=== PATIENT | female | born 2000 | race Two or more races ===

== ENCOUNTER 2023-12-22 14:07 | Emergency (ER) | payer OTHER ==
[~2023-12-22] VITALS: Ht 167.6 cm; Wt 122.5 kg
[2023-12-22] MEDS ORDERED: 0.9 % SODIUM CHLORIDE 1,000 ML IV STA (18:19)
[2023-12-22] MEDS ORDERED: MEPERIDINE HCL/PF 25 MG/ML VIAL IM STA (18:20)
[2023-12-22] MEDS ORDERED: PROMETHAZINE HCL 25 MG/ML AMPUL IM STA (18:20)
[2023-12-22 19:27] LABS: HEMATOCRIT 36.3 % (36.0-45.00); HEMOGLOBIN 13.1 g/dL (12.0-15.00); MEAN CELL VOLUME 85.9 fL (80.00-100.00); MEAN CORPUSCULAR HEMOGLOBIN 30.9 pg (27.00-32.0); PLATELET COUNT 350 K/uL (150-450); RED BLOOD COUNT 4.23 M/uL (4.00-6.00); RED CELL DISTRIBUTION WIDTH 14.7 % (11.5-14.5)
[2023-12-22 19:42] LABS: INR 1.02; PARTIAL THROMBOPLASTIN TIME 29.8 SECONDS (22.0-34.0); PROTHROMBIN TIME 10.7 SECONDS (9.0-11.5)
[2023-12-22 20:08] LABS: ALBUMIN 3.9 gm/dL (3.4-5.0); BILIRUBIN TOTAL 0.99 mg/dL (0.3-1.2); CALCIUM 9.2 mg/dL (8.5-10.1); CREATININE SERUM 0.67 mg/dL (0.55-1.02); GFR 110.06; GLOBULINA 3.6 G/DL (2.4-3.5); POTASSIUM 3.74 mEq/L (3.5-5.1); TOTAL PROTEIN 7.5 gm/dL (6.4-8.2)
== END 2023-12-22 22:12 | disposition home or self-care (01) ==
LOC: ER 14:07
DX: R10.9 Unspecified abdominal pain (principal); Z88.0 Allergy status to penicillin; Z88.6 Allergy status to analgesic agent; Z91.018 Allergy to other foods
CPT/HCPCS: 36415; 71045; 72040; 72100; 74177; Q9965